=== PATIENT | female | born 1950 | race Caucasian/White ===

== ENCOUNTER 2018-06-27 07:30 | Observation (INO) | payer MEDICARE ==
[2018-06-26 11:32] VITALS: BP 141/75
[2018-06-26 11:37] LABS: BASOPHILS % (AUTO) 0.9 % (0.0-5.0); EOSINOPHILS % (AUTO) 11.3 % (0.0-8.0); HEMATOCRIT 39.9 % (36-48); LYMPHOCYTES % (AUTO) 27.7 % (21.0-51.0); MEAN CORPUSCULAR HEMOGLOBIN 27.9 pg (27.0-33.0); MEAN CORPUSCULAR HGB CONC 32.7 g/dL (32.0-36.0); MEAN CORPUSCULAR VOLUME 85.2 fL (79-99); MONOCYTES % (AUTO) 4.9 % (3.0-13.0); NEUTROPHILS % (AUTO) 55.2 % (40.0-77.0); PLATELET COUNT (AUTO) 357 K/uL (130-400); RED BLOOD CELL COUNT(AUTO) 4.69 MIL/uL (4.00-5.50); WHITE BLOOD COUNT (AUTO) 9.9 K/uL (4.8-10.8)
[2018-06-26 11:50] LABS: ALBUMIN 3.5 g/dL (3.5-5.0); BILIRUBIN,TOTAL 0.5 mg/dL (0.2-1.0); CREATININE 0.8 mg/dL (0.5-1.5); POTASSIUM 3.9 mmol/L (3.5-5.1); TOTAL PROTEIN, SERUM 7.3 g/dL (6.0-8.3)
[2018-06-27] VITALS (18 sets, daily range): BP systolic 125–154; BP diastolic 43–93
[~2018-06-27] VITALS: Ht 165.1 cm; Wt 91.6 kg
[~2018-06-27 07:30] MED LIST: BENZ-51 PO; CARV6.25 PO; CYCL10TA7 PO; DIPH25CA7 PO; FLUT1BLS IH; HYDR25TA PO; IPRA3AMP24 IH; IPRA4AER IH; LEVO50TA11 PO; LOSA50TA25 PO; MELO-108 PO; MILN50TA PO; MONT10TA24 PO; OLOPATADINE OP; PREG75 PO; SODI30SP3 NS
[2018-06-27] MEDS ORDERED: LEVOFLOXACIN 500 MG/D5W 100 ML 100 ML ONE (08:37)
[2018-06-27] MEDS ORDERED: LACTATED RINGERS 1000ML 1,000 ML IV ONE (08:37)
[2018-06-27] MEDS ORDERED: CLINDAMYCIN 600 MG/D5% WATER 50 ML IV ONE (08:38)
[2018-06-27] MEDS ORDERED: LEVOFLOXACIN 500 MG/D5W 100 ML 100 ML IV SCH (09:00)
[2018-06-27] MEDS ORDERED: SUCCINYLCHOLINE 200MG/10ML SYR ONE (10:54)
[2018-06-27] MEDS ORDERED: PROPOFOL 10 MG/ML 20ML VIAL IV ONE (10:54)
[2018-06-27] MEDS ORDERED: LIDOCAINE PF 2% 5ML ABBOJECT ONE (10:54)
[2018-06-27] MEDS ORDERED: ROCURONIUM 10MG/1ML SYR 10 MG/ML ML ONE (10:54)
[2018-06-27] MEDS ORDERED: FENTANYL CITRATE PF 50 MCG/1 ML 2ML VIAL ONE ×2 (10:55→13:21)
[2018-06-27] MEDS ORDERED: LIDOCAINE 1%-EPI 1:100,000 20 ML VIAL IJ ONE (11:08)
[2018-06-27] MEDS ORDERED: BUPIVACAINE/PF 0.25% 30ML VIAL IJ ONE (11:08)
[2018-06-27] MEDS ORDERED: SULFANILAMIDE 120 GM TUBE VG ONE (11:08)
[2018-06-27] MEDS ORDERED: METHYLENE BLUE 10 MG/ML AMP ONE (11:09)
[2018-06-27] MEDS ORDERED: GLYCOPYRROLATE 1 MG/5 ML SYRINGE ONE (13:13)
[2018-06-27] MEDS ORDERED: NEOSTIGMINE 5MG/5ML SYR IV ONE (13:16)
[2018-06-27] MEDS ORDERED: ONDANSETRON HCL 4 MG/2 ML VIAL ONE (13:19)
[2018-06-27] MEDS ORDERED: CALDOLOR 800MG+NS 250ML 250 ML IV ONE (13:19)
[2018-06-27] MEDS ORDERED: BISACODYL 10 MG SUPP.RECT RC PRN (13:30)
[2018-06-27] MEDS ORDERED: DOCUSATE SODIUM 100 MG CAP PO PRN (13:30)
[2018-06-27] MEDS ORDERED: SIMETHICONE 80 MG TAB.CHEW PO PRN (13:30)
[2018-06-27] MEDS ORDERED: MEPERIDINE-PF 25 MG/ML SYG ONE ×2 (13:50→13:54)
[2018-06-27] MEDS: ACETAMINOPHEN-CODEINE 300/30MG TAB PO PRN ×2 (15:17→22:56)
[2018-06-27] MEDS: SODIUM CHLORIDE 0.9% 1000ML 1,000 ML IV SCH ×2 (15:18→22:18)
[2018-06-27] MEDS ORDERED: NON-FORMULARY MEDICATION 1 EACH (Ipratropium/Albuterol Sulfate (Combivent Respimat Inhal S IH PRN (19:00)
[2018-06-27] MEDS ORDERED: IPRATROPIUM/ALBUTEROL SULFATE 3 ML SOLUTION IH PRN (19:00)
[2018-06-27] MEDS ORDERED: CYCLOBENZAPRINE HCL 10 MG TABLET PO SCH (19:00)
[2018-06-27] MEDS ORDERED: BENZONATATE 100 MG CAPSULE PO PRN (19:00)
[2018-06-27] MEDS ORDERED: SODIUM CHLORIDE 45 ML SPRY NS SCH (19:00)
[2018-06-27] MEDS: HYDROCHLOROTHIAZIDE 25 MG TABLET PO SCH (20:50)
[2018-06-27] MEDS: CALDOLOR 800MG+NS 250ML 250 ML IV SCH (20:50)
[2018-06-27] MEDS: PREGABALIN 75 MG CAPSULE PO SCH (20:51)
[2018-06-27] MEDS: CARVEDILOL 6.25 MG TABLET PO SCH (21:00)
[2018-06-27] MEDS ORDERED: MELOXICAM 7.5 MG TABLET PO SCH (21:00)
[2018-06-28 00:44] VITALS: BP 126/60
[2018-06-28] MEDS: CARVEDILOL 6.25 MG TABLET PO SCH ×2 (02:30→09:58)
[2018-06-28 03:12] VITALS: BP 123/64
[2018-06-28] MEDS: CALDOLOR 800MG+NS 250ML 250 ML IV SCH (05:56)
[2018-06-28] MEDS: SODIUM CHLORIDE 0.9% 1000ML 1,000 ML IV SCH (06:01)
[2018-06-28 06:28] LABS: HEMATOCRIT 35.2 % (36-48); MEAN CORPUSCULAR HGB CONC 32.8 g/dL (32.0-36.0); MEAN CORPUSCULAR VOLUME 85.3 fL (79-99); NUCLEATED RED BLOOD CELLS 0.1 % (0.0-0.19); PLATELET COUNT (AUTO) 287 K/uL (130-400); RED BLOOD CELL COUNT(AUTO) 4.13 MIL/uL (4.00-5.50); RED CELL DISTRIBUTION WIDTH 13.2 % (11.0-15.5); WHITE BLOOD COUNT (AUTO) 6.7 K/uL (4.8-10.8)
[2018-06-28] MEDS ORDERED: LEVOTHYROXINE 50 MCG TABLET PO SCH (06:30)
[2018-06-28 07:46] VITALS: BP 128/63
[2018-06-28] MEDS ORDERED: MONTELUKAST SODIUM 10 MG TAB PO SCH (09:00)
[2018-06-28] MEDS ORDERED: FLUTICASONE/VILANTEROL 1 EACH BLST.W.DEV IH SCH (09:00)
[2018-06-28] MEDS ORDERED: OLOPATADINE 0.7% OP PRN (09:00)
[2018-06-28] MEDS: HYDROCHLOROTHIAZIDE 25 MG TABLET PO SCH (09:58)
[2018-06-28] MEDS: PREGABALIN 75 MG CAPSULE PO SCH (09:58)
[2018-06-28 11:47] VITALS: BP 127/72
[2018-06-28] MEDS: ACETAMINOPHEN-CODEINE 300/30MG TAB PO PRN (12:26)
[2018-06-28] MEDS ORDERED: IBUPROFEN 800 MG TAB PO SCH (13:30)
== END 2018-06-28 13:55 | disposition home or self-care (01) ==
LOC: DAH 07:30 → WSH 07:31
DX: N80.9 Endometriosis, unspecified (principal); N95.0 Postmenopausal bleeding; Z90.710 Acquired absence of both cervix and uterus; K66.0 Peritoneal adhesions (postprocedural) (postinfection)
CPT/HCPCS: 36415 ×2; 58550; 80053; 85025; 85027; 86850; 86900; 86901; 88305; 93005; 94640; 94664; 96365; 96366; A4215 ×2; A4344; A4510; A4600; A4930; C1769 ×2; G0168; G0378 ×30; J0330; J1741 ×3; J1956; J2001; J2175 ×2; J2405; J2704; J2710; J3010; J3490 ×4; J7030 ×3; J7120; Q9968

== ENCOUNTER 2021-10-05 14:38 | Emergency (ER) | payer OTHER, MEDICARE ==
[~2021-10-05] VITALS: Ht 162.6 cm; Wt 95.7 kg
[~2021-10-05 14:38] MED LIST changes: -BENZ-51 PO; +BENZ-70 PO; +CYCL-309 PO; -CYCL10TA7 PO; +DIPH25CA53 PO; -DIPH25CA7 PO; -LOSA50TA25 PO; +LOSA50TA64 PO; +MONT-39 PO; -MONT10TA24 PO
[2021-10-05 15:43] LABS: BASOPHILS % (AUTO) 1.2 % (0.0-5.0); EOSINOPHILS % (AUTO) 8.1 % (0.0-8.0); HEMATOCRIT 38.1 % (36-48); LYMPHOCYTES % (AUTO) 23.3 % (21.0-51.0); MEAN CORPUSCULAR HEMOGLOBIN 29.5 pg (27.0-33.0); MEAN CORPUSCULAR HGB CONC 33.3 g/dL (32.0-36.0); MEAN CORPUSCULAR VOLUME 88.4 fL (79-99); MONOCYTES % (AUTO) 6.8 % (3.0-13.0); NEUTROPHILS % (AUTO) 60.3 % (40.0-77.0); PLATELET COUNT (AUTO) 372 K/uL (130-400); RED BLOOD CELL COUNT(AUTO) 4.31 MIL/uL (4.00-5.50); RED CELL DISTRIBUTION WIDTH 11.9 % (11.0-15.5); WHITE BLOOD COUNT (AUTO) 9.9 K/uL (4.8-10.8)
[2021-10-05 15:51] LABS: POTASSIUM 3.4 mmol/L (3.5-5.1)
[2021-10-05 15:56] LABS: ALBUMIN 3.6 g/dL (3.5-5.0); BILIRUBIN,TOTAL 0.4 mg/dL (0.2-1.0); TOTAL PROTEIN, SERUM 7.1 g/dL (6.0-8.3)
[2021-10-05] MEDS ORDERED: PANTOPRAZOLE 40 MG/VIAL IVP ONE (16:00)
[2021-10-05] MEDS ORDERED: POTASSIUM BICARB/CIT AC 25 MEQ TABLET.EFF PO ONE (17:00)
[2021-10-05] MEDS ORDERED: LIDOCAINE HCL 2% VISCOUS 15 ML UDCUP PO ONE (17:00)
[2021-10-05] MEDS ORDERED: MAG/ALUM/SIMETH 30 ML UDCUP PO ONE (17:00)
[2021-10-05] MEDS ORDERED: DICYCLOMINE HCL 10 MG/5 ML ML PO ONE (17:00)
[2021-10-05] MEDS ORDERED: FAMO20TA8 PO (18:33)
[2021-10-05 18:48] VITALS: BP 134/56
== END 2021-10-05 18:55 | disposition home or self-care (01) ==
LOC: EDH 14:38
DX: K21.9 Gastro-esophageal reflux disease without esophagitis (principal); I10 Essential (primary) hypertension; M79.7 Fibromyalgia; Z79.1 Long term (current) use of non-steroidal anti-inflammatories (NSAID); Z79.51 Long term (current) use of inhaled steroids; Z79.899 Other long term (current) drug therapy; Z88.0 Allergy status to penicillin
CPT/HCPCS: 36415; 71045; 74177; 80053; 83690; 84484; 85025; 93005; 96374; 99285; C9113

== ENCOUNTER → 2021-11-09 | Outpatient (CLI) | payer OTHER, MEDICARE ==
[~2021-11-09] MED LIST changes: +FAMO20TA8 PO; +IOHEXOL 350 MG/ML 100ML INFUS..BTL IV ONE
== END | disposition home or self-care (01) ==
LOC: SLP 19:52
PROVIDERS: ATTEND Internal Medicine
DX: G47.33 Obstructive sleep apnea (adult) (pediatric) (principal)
CPT/HCPCS: 95811; Q9967

== ENCOUNTER → 2024-12-31 | Outpatient (CLI) | payer MEDICARE, MEDICAID ==
[~2024-12-31] MED LIST changes: +BENZ-226 PO; -BENZ-70 PO; -IOHEXOL 350 MG/ML 100ML INFUS..BTL IV ONE
--- NOTE | 2024-12-31 11:11 | HMCIMG ---
BONE DENSITOMETRY: HISTORY: Unspecified menopausal and perimenopausal disorder Comparison: none FINDINGS: BMD measured at AP spine L1-L4 is 1.106 g/cm2 with a T-score of 0.5 Bone density is up to 10% below young normal. This patient is considered normal according to WHO criteria. Fracture risk is low. BMD measured at Left Femoral Neck is 0.721 g/cm2 with a T-score of -1.2 Bone density is between 10 and 25% below young normal. This patient is considered osteopenic. Fracture risk is moderate. BMD measured at Left Femoral Total is 0.810 g/cm2 with a T-score of -1.1 Bone density is between 10 and 25% below young normal. This patient is considered osteopenic. Fracture risk is moderate. IMPRESSION: Osteopenia. Treatment and follow-up recommended.
== END | disposition home or self-care (01) ==
LOC: RAH 09:20
PROVIDERS: ATTEND Internal Medicine
DX: M85.852 Other specified disorders of bone density and structure, left thigh (principal); Z13.820 Encounter for screening for osteoporosis; N95.9 Unspecified menopausal and perimenopausal disorder
CPT/HCPCS: 77080